=== PATIENT | male | born 1995 | race Caucasian/White ===

== ENCOUNTER 2020-06-29 09:23 | Emergency (ER) | payer OTHER, SELFPAY ==
[2020-06-29 09:42] VITALS: BP 125/79; PULSE 92; RESP 18; TEMP 36.6; O2SAT 99; BMI 32.1
--- NOTE | 2020-06-29 09:58 | ED_ITS ---
HPI - Abdominal Pain General Chief Complaint: Abdominal Pain <LORETTA Lagunas Last Filed: 06/29/20 13:20> Stated Complaint: abd pain <LORETTA Lagunas Last Filed: 06/29/20 13:20> Time Seen by Provider: 06/29/20 09:49 <LORETTA Lagunas Last Filed: 06/29/20 13:20> Source: patient <LORETTA Lagunas Last Filed: 06/29/20 13:20> Mode of arrival: ambulatory <LORETTA Lagunas Last Filed: 06/29/20 13:20> Limitations: no limitations <LORETTA Lagunas Last Filed: 06/29/20 13:20> History of Present Illness HPI narrative: patient presents to the for left lower quadrant abdominal pain with diarrhea and blood in the stool which occurred this morning. Patient states also episodes of vomiting. Patient states also having subjective fever 2 days ago with slight headache adn bodyaches. Patient denies any coughing, chest pain, or shortness of breaths. <LORETTA Lagunas Last Filed: 06/29/20 13:20> MD elicited complaint: abdominal pain <LORETTA aLgunas Last Filed: 06/29/20 13:20> Related Data Allergies/Adverse Reactions: Allergies Allergy/AdvReac Type Severity Reaction Status Date / Time No Known Allergies Allergy Verified 06/29/20 09:41 <LORETTA Lagunas Last Filed: 06/29/20 13:20> Review of Systems Review of Systems Yes all other systems are reviewed and are negative <LORETTA Lagunas Last Filed: 06/29/20 13:20> Constitutional: Reports as per HPI, Reports no additional constitutional complaints and Reports fever(s) <LORETTA Lagunas Last Filed: 06/29/20 13:20> Eyes: Reports no additional eye complaints <LORETTA Lagunas Last Filed: 06/29/20 13:20> Reports system reviewed and no additional complaints, except as documented and Reports as per HPI <LORETTA Lagunas Last Filed: 06/29/20 13:20> Cardiovascular: Reports as per HPI and Reports no additional cardiovascular complaints <LORETTA Lagunas Last Filed: 06/29/20 13:20> Respiratory: Reports as per HPI and Reports no additional respiratory complaints <LORETTA Lagunas Last Filed: 06/29/20 13:20> Gastrointestinal: Reports as per HPI, Reports no additional gastrointestinal complaints, Reports abdominal pain, Reports hematochezia, Reports diarrhea, Reports nausea and Reports vomiting <LORETTA Lagunas Last Filed: 06/29/20 13:20> Genitourinary: Reports no additional male genitourinary complaints and Reports as per HPI <LORETTA Lagunas Last Filed: 06/29/20 13:20> Musculoskeletal: Reports no additional musculoskeletal complaints and Reports as per HPI <LORETTA Lagunas Last Filed: 06/29/20 13:20> Reports system reviewed and no additional complaints, except as documented and Reports as per HPI <LORETTA Lagunas Last Filed: 06/29/20 13:20> Psychiatric: Reports no additional psychiatric complaints and Reports as per HPI <LORETTA Lagunas Last Filed: 06/29/20 13:20> Physical Exam Vital Signs: Vital Signs: Last Vital Signs Temp 98.1 F 06/29/20 12:31 Pulse 84 06/29/20 12:31 Resp 16 06/29/20 12:31 BP 128/86 06/29/20 12:31 Pulse Ox 98 06/29/20 12:31 Body Mass Index 32.1 <LORETTA Lagunas Last Filed: 06/29/20 13:20> Vital Signs: Last Vital Signs Temp 98.1 F 06/29/20 12:31 Pulse 84 06/29/20 12:31 Resp 16 06/29/20 12:31 BP 128/86 06/29/20 12:31 Pulse Ox 98 06/29/20 12:31 Body Mass Index 32.1 <Sam Gibbs MD - Last Filed: 07/17/20 20:06> Const: General: cooperative, healthy appearing, comfortable, no acute distre ss, well developed, alert, awake and Physically active <LORETTA Lagunas Last Filed: 06/29/20 13:20> Orientation/consciousness: patient oriented x3 <LORETTA Lagunas Last Filed: 06/29/20 13:20> HENMT: Head: Yes normal to inspection and Yes No palpable skull fracture present <LORETTA Lagunas - Last Filed: 06/29/20 13:20> Eyes: General: appearance normal, both eyes and all related structures <LORETTA Lagunas Last Filed: 06/29/20 13:20> Neck: Neck: Yes normal visual inspection and Yes full ROM <LORETTA Lagunas Last Filed: 06/29/20 13:20> Chest: Chest palpation & inspection: normal inspection of the chest and normal palpation of entire chest wall <Kaleb Bess [place] - Last Filed: 06/29/20 13:20> Resp: Effort & Inspection: normal respiratory effort and able to speak in complete sentences <LORETTA Lagunas Last Filed: 06/29/20 13:20> Auscultation: clear to auscultation bilaterally <LORETTA Lagunas Last Filed: 06/29/20 13:20> Cardio: Jugular venous distension: no JVD <LORETTA Lagunas Last Filed: 06/29/20 13:20> Heart sounds: S1 normal heart sound present and S2 normal heart sound present <LORETTA Lagunas Last Filed: 06/29/20 13:20> GI: Other: Rectal exam negative for any black stool or milli blood. <LORETTA Lagunas Last Filed: 06/29/20 13:20> Inspection: Yes normal to inspection and No abdominal wall ecchymosis <LORETTA Lagunas Last Filed: 06/29/20 13:20> Palpation (GI): Soft to palpation, not firm, Tenderness to palpation present (GI) (mild) in the LLQ, no guarding and not rigid <LORETTA Lagunas - Last Filed: 06/29/20 13:20> : General: No CVA tenderness and Yes no CVA tenderness <LORETTA Lagunas - Last Filed: 06/29/20 13:20> Back/Spine/Pelvis: Back: no CVA tenderness, No CVA tenderness and No back tenderness <LORETTA Lagunas - Last Filed: 06/29/20 13:20> Skin: General skin exam: no rashes or lesions noted <LORETTA Lagunas - Last Filed: 06/29/20 13:20> Neuro: General: patient oriented x3, gait normal and CN's II-XI intact bilaterally <LORETTA Lagunas - Last Filed: 06/29/20 13:20> Cranial nerves: Yes CN's II-XII intact bilaterally <LORETTA Lagunas - Last Filed: 06/29/20 13:20> Extrem: General: Yes normal to inspection and Yes full ROM <LORETTA Lagunas - Last Filed: 06/29/20 13:20> Psych: Appearance: grossly normal, well kempt and not disheveled <LORETTA Lagunas Last Filed: 06/29/20 13:20> Course Course Course Narrative: Patient will have basic labs, IV fluids, Toradol, and Zofran. Stool guaiacs also sent. Suspecting colitis due to blood in stool abdominal pain. <LORETTA Lagunas - Last Filed: 06/29/20 13:20> I have reviewed the chart <Sam Gibbs MD - Last Filed: 07/17/20 20:06> Reevaluation(s) Reevaluation #1: Patient's CT scan came back negative for colitis. Patient labs normal. Patient history physical exam indicating more viral gastroenteritis. Negative for any blood on occult stool. Plan was to order a COVID-19 swab, but patient already had been tested for COVID-19 this morning and is awaiting for results. Patient states he feels better. <LORETTA Lagunas - Last Filed: 06/29/20 13:20> Time: 12:16 <LORETTA Laguans Last Filed: 06/29/20 13:20> MDM - Abdominal Pain MDM Narrative Medical decision making narrative: gastroenteritis <LORETTA Lagunas Last Filed: 06/29/20 13:20> Lab Data Result diagrams: : 06/29/20 09:58 06/29/20 09:58 <LORETTA Lagunas - Last Filed: 06/29/20 13:20> Labs: Lab Results 06/29/20 06/29/20 06/29/20 Range/Units 09:58 09:58 09:58 WBC 12.6 H (4.8-10.8) X10*3/uL RBC 5.34 (4.60-5.80) X10*6/uL Hgb 15.6 (14.0-18.0) g/dl Hct 47.0 (42-52) % MCV 88.0 (80-98) fL MCH 29.2 (27.0-33.0) pg MCHC 33.2 (31.0-36.0) g/dl RDW 12.6 (11.0-16.0) % Plt Count 271 (160-400) X10*3/uL MPV 11.0 (9.4-12.4) fL Immature Gran % (Auto) 0.3 (0.0-0.4) % Neut % (Auto) 83.9 H (45-73) % Lymph % (Auto) 10.0 L (20-40) % [place] % (Auto) 4.9 (2-11) % Eos % (Auto) 0.6 (0-4) % Baso % (Auto) 0.3 (0-2) % Lymph # (Auto) 1.3 (1.2-4.9) X10*3/uL [place] # (Auto) 0.6 (0.1-1.2) X10*3/uL Eos # (Auto) 0.1 (0.0-0.4) X10*3/uL Baso # (Auto) 0.0 (0.0-0.2) X10*3/uL Abs Immat Gran (auto) 0.04 H (0.00-0.03) X10*3/uL Absolute Neuts (auto) 10.6 H (2.0-8.3) X10*3/uL Absolute Nucleated RBC 0.000 (0.0-0.012) X10*3/uL Nucleated RBC % (auto) 0.0 (0.0-0.2) /100WBC PT 11.5 (10.8-13.0) SEC INR 1.0 (0.9-1.1) APTT 37.1 (24.1-38.0) SEC Sodium 140 (135-145) mmol/L Potassium 4.3 (3.3-5.1) mmol/l Chloride 107 (96-108) mmol/L Carbon Dioxide 26 (22-29) mmol/L Anion Gap 11 L (12-20) BUN 12 (9-16) mg/dL Creatinine 0.80 (0.5-1.4) mg/dL Estim Creat Clear Calc 173.5 Estimated GFR > 60 Random Glucose 85 (60-115) mg/dL Calcium 9.2 (8.4-10.2) mg/dL Total Bilirubin 0.7 (0.0-1.0) mg/dL Direct Bilirubin 0.2 (0.0-0.5) mg/dL AST 24 (5-37) U/L ALT 40 (0-40) U/L Alkaline Phosphatase 100 (39-117) U/L Total Protein 7.2 (6.5-8.0) g/dL Albumin 4.6 (3.5-5.0) g/dL Lipase 47 (8-78) U/L Urine Color Urine Appearance Urine pH (5.0-8.0) Ur Specific [place] (1.005-1.025) Urine Protein (NEG-TRACE) MG/DL Urine Glucose (UA) (NEG) MG/DL Urine Ketones (NEG) MG/DL Urine Blood (NEG) Urine Nitrite (NEG) Ur Leukocyte Esterase (NEG) Stool Occult Blood (NEG) 06/29/20 06/29/20 Range/Units 10:03 11:22 WBC (4.8-10.8) X10*3/uL RBC (4.60-5.80) X10*6/uL Hgb (14.0-18.0) g/dl Hct (42-52) % MCV (80-98) fL MCH (27.0-33.0) pg MCHC (31.0-36.0) g/dl RDW (11.0-16.0) % Plt Count (160-400) X10*3/uL MPV (9.4-12.4) fL Immature Gran % (Auto) (0.0-0.4) % Neut % (Auto) (45-73) % Lymph % (Auto) (20-40) % [place] % (Auto) (2-11) % Eos % (Auto) (0-4) % Baso % (Auto) (0-2) % Lymph # (Auto) (1.2-4.9) X10*3/uL [place] # (Auto) (0.1-1.2) X10*3/uL Eos # (Auto) (0.0-0.4) X10*3/uL Baso # (Auto) (0.0-0.2) X10*3/uL Abs Immat Gran (auto) (0.00-0.03) X10*3/uL Absolute Neuts (auto) (2.0-8.3) X10*3/uL Absolute Nucleated RBC (0.0-0.012) X10*3/uL Nucleated RBC % (auto) (0.0-0.2) /100WBC PT (10.8-13.0) SEC INR (0.9-1.1) APTT (24.1-38.0) SEC Sodium (135-145) mmol/L Potassium (3.3-5.1) mmol/l Chloride (96-108) mmol/L Carbon Dioxide (22-29) mmol/L Anion Gap (12-20) BUN (9-16) mg/dL Creatinine (0.5-1.4) mg/dL Estim Creat Clear Calc Estimated GFR Random Glucose (60-115) mg/dL Calcium (8.4-10.2) mg/dL Total Bilirubin (0.0-1.0) mg/dL Direct Bilirubin (0.0-0.5) mg/dL AST (5-37) U/L ALT (0-40) U/L Alkaline Phosphatase (39-117) U/L Total Protein (6.5-8.0) g/dL Albumin (3.5-5.0) g/dL Lipase (8-78) U/L Urine Color YELLOW Urine Appearance CLEAR Urine pH 8.5 H (5.0-8.0) Ur Specific [place] 1.015 (1.005-1.025) Urine Protein NEG (NEG-TRACE) MG/DL Urine Glucose (UA) NEG (NEG) MG/DL Urine Ketones NEG (NEG) MG/DL Urine Blood NEG (NEG) Urine Nitrite NEG (NEG) Ur Leukocyte Esterase NEG (NEG) Stool Occult Blood NEG (NEG) <LORETTA Lagunas - Last Filed: 06/29/20 13:20> Lab Results 06/29/20 06/29/20 06/29/20 Range/Units 09:58 09:58 09:58 WBC 12.6 H (4.8-10.8) X10*3/uL RBC 5.34 (4.60-5.80) X10*6/uL Hgb 15.6 (14.0-18.0) g/dl Hct 47.0 (42-52) % MCV 88.0 (80-98) fL MCH 29.2 (27.0-33.0) pg MCHC 33.2 (31.0-36.0) g/dl RDW 12.6 (11.0-16.0) % Plt Count 271 (160-400) X10*3/uL MPV 11.0 (9.4-12.4) fL Immature Gran % (Auto) 0.3 (0.0-0.4) % Neut % (Auto) 83.9 H (45-73) % Lymph % (Auto) 10.0 L (20-40) % [place] % (Auto) 4.9 (2-11) % Eos % (Auto) 0.6 (0-4) % Baso % (Auto) 0.3 (0-2) % Lymph # (Auto) 1.3 (1.2-4.9) X10*3/uL [place] # (Auto) 0.6 (0.1-1.2) X10*3/uL Eos # (Auto) 0.1 (0.0-0.4) X10*3/uL Baso # (Auto) 0.0 (0.0-0.2) X10*3/uL Abs Immat Gran (auto) 0.04 H (0.00-0.03) X10*3/uL Absolute Neuts (auto) 10.6 H (2.0-8.3) X10*3/uL Absolute Nucleated RBC 0.000 (0.0-0.012) X10*3/uL Nucleated RBC % (auto) 0.0 (0.0-0.2) /100WBC PT 11.5 (10.8-13.0) SEC INR 1.0 (0.9-1.1) APTT 37.1 (24.1-38.0) SEC Sodium 140 (135-145) mmol/L Potassium 4.3 (3.3-5.1) mmol/l Chloride 107 (96-108) mmol/L Carbon Dioxide 26 (22-29) mmol/L Anion Gap 11 L (12-20) BUN 12 (9-16) mg/dL Creatinine 0.80 (0.5-1.4) mg/dL Estim Creat Clear Calc 173.5 Estimated GFR > 60 Random Glucose 85 (60-115) mg/dL Calcium 9.2 (8.4-10.2) mg/dL Total Bilirubin 0.7 (0.0-1.0) mg/dL Direct Bilirubin 0.2 (0.0-0.5) mg/dL AST 24 (5-37) U/L ALT 40 (0-40) U/L Alkaline Phosphatase 100 (39-117) U/L Total Protein 7.2 (6.5-8.0) g/dL Albumin 4.6 (3.5-5.0) g/dL Lipase 47 (8-78) U/L Urine Color Urine Appearance Urine pH (5.0-8.0) Ur Specific [place] (1.005-1.025) Urine Protein (NEG-TRACE) MG/DL Urine Glucose (UA) (NEG) MG/DL Urine Ketones (NEG) MG/DL Urine Blood (NEG) Urine Nitrite (NEG) Ur Leukocyte Esterase (NEG) Stool Occult Blood (NEG) 06/29/20 06/29/20 Range/Units 10:03 11:22 WBC (4.8-10.8) X10*3/uL RBC (4.60-5.80) X10*6/uL Hgb (14.0-18.0) g/dl Hct (42-52) % MCV (80-98) fL MCH (27.0-33.0) pg MCHC (31.0-36.0) g/dl RDW (11.0-16.0) % Plt Count (160-400) X10*3/uL MPV (9.4-12.4) fL Immature Gran % (Auto) (0.0-0.4) % Neut % (Auto) (45-73) % Lymph % (Auto) (20-40) % [place] % (Auto) (2-11) % Eos % (Auto) (0-4) % Baso % (Auto) (0-2) % Lymph # (Auto) (1.2-4.9) X10*3/uL [place] # (Auto) (0.1-1.2) X10*3/uL Eos # (Auto) (0.0-0.4) X10*3/uL Baso # (Auto) (0.0-0.2) X10*3/uL Abs Immat Gran (auto) (0.00-0.03) X10*3/uL Absolute Neuts (auto) (2.0-8.3) X10*3/uL Absolute Nucleated RBC (0.0-0.012) X10*3/uL Nucleated RBC % (auto) (0.0-0.2) /100WBC PT (10.8-13.0) SEC INR (0.9-1.1) APTT (24.1-38.0) SEC Sodium (135-145) mmol/L Potassium (3.3-5.1) mmol/l Chloride (96-108) mmol/L Carbon Dioxide (22-29) mmol/L Anion Gap (12-20) BUN (9-16) mg/dL Creatinine (0.5-1.4) mg/dL Estim Creat Clear Calc Estimated GFR Random Glucose (60-115) mg/dL Calcium (8.4-10.2) mg/dL Total Bilirubin (0.0-1.0) mg/dL Direct Bilirubin (0.0-0.5) mg/dL AST (5-37) U/L ALT (0-40) U/L Alkaline Phosphatase (39-117) U/L Total Protein (6.5-8.0) g/dL Albumin (3.5-5.0) g/dL Lipase (8-78) U/L Urine Color YELLOW Urine Appearance CLEAR Urine pH 8.5 H (5.0-8.0) Ur Specific [place] 1.015 (1.005-1.025) Urine Protein NEG (NEG-TRACE) MG/DL Urine Glucose (UA) NEG (NEG) MG/DL Urine Ketones NEG (NEG) MG/DL Urine Blood NEG (NEG) Urine Nitrite NEG (NEG) Ur Leukocyte Esterase NEG (NEG) Stool Occult Blood NEG (NEG) <Sam Gibbs MD - Last Filed: 07/17/20 20:06> Discharge Plan Discharge Clinical Impression: Gastroenteritis <LORETTA Lagunas - Last Filed: 06/29/20 13:20> Patient Disposition: Home, Self-Care <LORETTA Lagunas - Last Filed: 06/29/20 13:20> Instructions: Gastroenteritis (ED), Viral Syndrome (ED) <LORETTA Lagunas - Last Filed: 06/29/20 13:20> Additional Instructions: return to the ED immediately for worsening abdominal pain, weakness, chest pain, shortness of breath, fever chills, inability to tolerate solid food/liquid, or any other concerning symptoms. Patient COVID test come back positive recommend 14 days self-isolation. <LORETTA Lagunas - Last Filed: 06/29/20 13:20> Stand Alone Forms: Work/School Release <LORETTA Lagunas - Last Filed: 06/29/20 13:20> Interventions: ED Discharge Assessment Last Done: 06/29/20 12:34 <LORETTA Lagunas - Last Filed: 06/29/20 13:20> Discharge Date/Time: 06/29/20 12:35 <LORETTA Lagunas - Last Filed: 06/29/20 13:20> Print Language: Portuguese <LORETTA Lagunas - Last Filed: 06/29/20 13:20> [facility] Social History Social History: Social History Advance Directives: No Advance Directives Information Provided: No <LORETTA Lagunas - Last Filed: 06/29/20 13:20>
[2020-06-29] MEDS: Ketorolac Tromethamine 30 MG/ML VIAL IVPUSH ×2 (10:06→10:07)
[2020-06-29] MEDS: ondansetron HCL 4 MG/2 ML VIAL IVPUSH (10:06)
[2020-06-29] MEDS: 0.9 % Sodium Chloride 1,000 ML 999 ML IVCONT (10:08)
[2020-06-29 10:09] LABS: OBS Int Ctl Valid YES; OBS1 NEG (NEG)
[2020-06-29 10:09] LABS: MANUAL DIFF FLAG NO
[2020-06-29 10:10] LABS: Basophils Percent Auto 0.3 % (0-2); Eosinophils Absolute Auto 0.1 X10*3/uL (0.0-0.4); Eosinophils Percent Auto 0.6 % (0-4); Hemoglobin 15.6 g/dl (14.0-18.0); Imm Gran Abs Auto 0.04 X10*3/uL (0.00-0.03); Imm Gran Pct Auto 0.3 % (0.0-0.4); Lymphocytes Absolute Auto 1.3 X10*3/uL (1.2-4.9); Mean Corpuscular HGB Conc 33.2 g/dl (31.0-36.0); Mean Corpuscular Hemoglobin 29.2 pg (27.0-33.0); Monocytes Absolute Auto 0.6 X10*3/uL (0.1-1.2); Monocytes Percent Auto 4.9 % (2-11); Neutrophils Absolute Auto 10.6 X10*3/uL (2.0-8.3); Neutrophils Percent Auto 83.9 % (45-73); Platelet Count 271 X10*3/uL (160-400); Red Blood Count 5.34 X10*6/uL (4.60-5.80); Red Cell Distribution Width 12.6 % (11.0-16.0); White Blood Count 12.6 X10*3/uL (4.8-10.8)
[2020-06-29 10:17] LABS: Prothrombin Time 11.5 SEC (10.8-13.0)
[2020-06-29 10:20] LABS: Partial Thromboplastin Time 37.1 SEC (24.1-38.0)
[2020-06-29 10:41] LABS: Alanine Aminotransferase 40 U/L (0-40); Albumin Level 4.6 g/dL (3.5-5.0); Alkaline Phosphatase 100 U/L (39-117); Anion Gap 11 (12-20); Aspartate Amino Transferase 24 U/L (5-37); Bilirubin Direct 0.2 mg/dL (0.0-0.5); Bilirubin Total 0.7 mg/dL (0.0-1.0); Blood Urea Nitrogen 12 mg/dL (9-16); Calcium 9.2 mg/dL (8.4-10.2); Carbon Dioxide 26 mmol/L (22-29); Chloride 107 mmol/L (96-108); Creatinine Clr Calc Pharmacy 173.5; Estimated Glomerular Filt Rate > 60; Glucose Random 85 mg/dL (60-115); Lipase 47 U/L (8-78); Potassium 4.3 mmol/l (3.3-5.1); Sodium 140 mmol/L (135-145); Total Protein 7.2 g/dL (6.5-8.0)
--- NOTE | 2020-06-29 10:48 | CT_ITS ---
EXAMINATION: CT ABDOMEN AND PELVIS WITH CONTRAST CLINICAL INFORMATION: Blood in stool, possible colitis. COMPARISON: CT abdomen and pelvis with contrast 10/29/2018. TECHNIQUE: Multidetector volumetric images were obtained from the superior aspect of the liver through the pubic symphysis following administration 85 mL of Omnipaque 350 intravenous contrast. Sagittal and coronal reformatted images were obtained on the technologist's workstation. Oral contrast: No This CT examination was performed using dose optimization techniques as appropriate, variously including the following: *Automated exposure control *Adjustment of mA and/or kV according to patient size (this includes techniques or standardized protocols for targeted exams where dose is matched to indication/reason for exam; i.e. extremities or head) *Use of iterative reconstruction technique DLP: 711 mGy-cm FINDINGS: LUNG BASES: The visualized lung bases are unremarkable. LIVER, GALLBLADDER, AND BILIARY TREE: The liver is normal in size, shape, and attenuation. No focal hepatic lesion or biliary ductal dilatation is present. The gallbladder is unremarkable with no evidence of radiopaque gallstones, gallbladder wall thickening, or obvious pericholecystic inflammatory changes. PANCREAS: Unremarkable. SPLEEN: Unremarkable. ADRENAL GLANDS: Unremarkable. KIDNEYS AND URETERS: The kidneys are normal in size, shape, and attenuation. No hydronephrosis, hydroureter, or calculi seen. No perinephric stranding. BLADDER: Unremarkable. GASTROINTESTINAL TRACT: No bowel obstruction or definite inflammatory changes seen in the bowel or mesentery. The appendix is normal. No ascites or fluid collection. Borderline sliding hiatal hernia. ABDOMINAL WALL: No significant hernia is appreciated. LYMPH NODES: No lymphadenopathy. VASCULAR: Unremarkable. PELVIC VISCERA: Unremarkable. OSSEOUS STRUCTURES: Unremarkable. CT/CT abdomen pelvis w con IMPRESSION: 1. No focal inflammatory changes in abdomen or pelvis. Normal appendix. No ascites. 2. No hydronephrosis, calculi, or perinephric stranding. 3. Unremarkable gallbladder. No ductal dilatation.
[2020-06-29 11:11] VITALS: BP 131/78; PULSE 81; RESP 15; O2SAT 98
[2020-06-29] MEDS: iohexoL 350 MG/ML 100 ML INFUS..BTL 85 ML IV (11:13)
[2020-06-29 11:34] LABS: Glucose Urine UA NEG (NEG); Leukocyte Esterase Urine NEG (NEG); Nitrite Urine NEG (NEG); PH 8.5 (5.0-8.0); Specific Gravity - Urine 1.015 (1.005-1.025); Urine Blood NEG (NEG); Urine Ketones NEG (NEG); Urine Protein NEG (NEG-TRACE)
[2020-06-29 11:35] LABS: Appearance Urine CLEAR; Color Urine YELLOW
[2020-06-29 12:31] VITALS: BP 128/86; PULSE 84; RESP 16; TEMP 36.7; O2SAT 98
== END 2020-06-29 12:35 | disposition home or self-care (01) ==
PROVIDERS: Physician Assistant; Emergency Provider Emergency Medicine
DX: K52.9 Noninfective gastroenteritis and colitis, unspecified (principal); K92.1 Melena
CPT/HCPCS: 36415; 74177; 80053; 80076; 81003; 82272; 83690; 85025; 85610; 85730; 96361; 96374; 96375; 99284; J1885; J2405; Q9967